=== PATIENT | female | born 1950 | race Two or more races ===

== ENCOUNTER → 2017-12-30 | Outpatient (CLI) | payer OTHER ==
[~2017-12-30] MED LIST: AMBIEN10 MG; CIPRO500 MG PO; CLONAZEPAM1 MG; INTESTINEX PO; LIPITOR20 MG PO; PROZAC20 MG; VIT D 50,000 PO; ZANTAC150 MG; ZANTAC150 MG PO; ZANTAC300 MG PO; ZESTRIL5 MG; ZESTRIL5 MG PO
== END | disposition home or self-care (01) ==
LOC: PPHC LAB 18:02
DX: Z01.89 Encounter for other specified special examinations (principal)

== ENCOUNTER → 2017-12-30 | Outpatient (CLI) | payer OTHER ==
[~2017-12-30] VITALS: Ht 152.4 cm; Wt 77.6 kg
== END | disposition home or self-care (01) ==
LOC: PPHC 17:47
DX: J02.8 Acute pharyngitis due to other specified organisms (principal); R05 Cough

== ENCOUNTER → 2018-01-24 | Emergency (ER) | payer OTHER ==
[~2018-01-24] VITALS: Ht 157.5 cm; Wt 78.0 kg
[~2018-01-24] MED LIST changes: +NEURONTIN300 MG PO; +PREMARIN0.45 MG; +VALACYCLOVIR1000 MG PO
== END | disposition home or self-care (01) ==
LOC: ER 21:06
DX: B02.8 Zoster with other complications (principal)

== ENCOUNTER → 2018-02-02 13:29 | Outpatient (CLI) | payer OTHER | END | disposition home or self-care (01) | LOC: LAB 13:29 | DX: R50.9 Fever, unspecified (principal) ==

== ENCOUNTER → 2018-02-02 | Outpatient (CLI) | payer OTHER | END | disposition home or self-care (01) | LOC: PPHC 12:10 | DX: B02.8 Zoster with other complications (principal) ==

== ENCOUNTER 2018-03-25 10:17 | Outpatient (CLI) | payer OTHER | END 2018-03-25 11:58 | disposition home or self-care (01) | LOC: RX STUDY 10:17 | DX: R13.10 Dysphagia, unspecified (principal) ==

== ENCOUNTER → 2018-06-22 | Outpatient (CLI) | payer OTHER | END | disposition home or self-care (01) | LOC: NUCLEAR 14:30 | DX: M81.8 Other osteoporosis without current pathological fracture (principal) ==

== ENCOUNTER 2019-03-29 16:44 | Outpatient (CLI) | payer OTHER | END 2019-03-29 16:55 | disposition home or self-care (01) | LOC: RAD 16:44 | DX: M25.562 Pain in left knee (principal) ==

== ENCOUNTER 2019-05-26 18:14 | Outpatient (CLI) | payer OTHER | END 2019-05-26 18:21 | disposition home or self-care (01) | LOC: LAB 18:14 | DX: J11.1 Influenza due to unidentified influenza virus with other respiratory manifestations (principal); J11.81 Influenza due to unidentified influenza virus with encephalopathy ==

== ENCOUNTER 2019-10-05 14:07 | Outpatient (CLI) | payer OTHER | END 2019-10-05 14:28 | disposition home or self-care (01) | LOC: MAMO-SONO 14:07 | DX: Z12.31 Encounter for screening mammogram for malignant neoplasm of breast (principal); Z87.898 Personal history of other specified conditions; N60.01 Solitary cyst of right breast ==

== ENCOUNTER 2019-10-19 17:10 | Outpatient (CLI) | payer OTHER | END 2019-10-19 17:15 | disposition home or self-care (01) | LOC: LAB 17:10 | DX: N39.0 Urinary tract infection, site not specified (principal) ==

== ENCOUNTER 2020-01-12 14:18 | Outpatient (CLI) | payer OTHER | END 2020-01-12 18:22 | disposition home or self-care (01) | LOC: RAD 14:18 | DX: M25.561 Pain in right knee (principal); M25.562 Pain in left knee ==

== ENCOUNTER 2020-04-02 16:49 | Emergency (ER) | payer OTHER ==
[~2020-04-02] VITALS: Ht 157.5 cm; Wt 77.6 kg
== END 2020-04-02 22:27 | disposition home or self-care (01) ==
LOC: ER 16:49
DX: K52.89 Other specified noninfective gastroenteritis and colitis (principal); K62.5 Hemorrhage of anus and rectum

== ENCOUNTER 2020-04-19 16:35 | Outpatient (CLI) | payer OTHER | END 2020-04-19 16:47 | disposition home or self-care (01) | LOC: LAB 16:35 | DX: R19.5 Other fecal abnormalities (principal) ==

== ENCOUNTER 2020-06-27 15:47 | Outpatient (CLI) | payer OTHER | END 2020-06-27 15:58 | disposition home or self-care (01) | LOC: RAD 15:47 | PROVIDERS: ATTEND General Practice | DX: R05 Cough (principal); J06.9 Acute upper respiratory infection, unspecified ==

== ENCOUNTER 2020-06-27 15:55 | Outpatient (CLI) | payer OTHER | END 2020-06-27 16:02 | disposition home or self-care (01) | LOC: LAB 15:55 | PROVIDERS: ATTEND General Practice | DX: J11.1 Influenza due to unidentified influenza virus with other respiratory manifestations (principal); R05 Cough; Z11.59 Encounter for screening for other viral diseases; Z20.828 Contact with and (suspected) exposure to other viral communicable diseases ==

== ENCOUNTER 2020-07-17 13:20 | Outpatient (CLI) | payer OTHER ==
[~2020-07-17] VITALS: Ht 157.5 cm; Wt 73.5 kg
[2020-07-17] MEDS ORDERED: ATACAND4 MG (16:02)
[2020-07-17] MEDS ORDERED: PROZAC20 MG (16:02)
== END 2020-07-17 15:53 | disposition home or self-care (01) ==
LOC: OFIC 805 13:20
PROVIDERS: ATTEND Otolaryngology Otology & Neurotology
DX: K21.0 Gastro-esophageal reflux disease with esophagitis (principal); J37.0 Chronic laryngitis; J04.0 Acute laryngitis; R49.0 Dysphonia

== ENCOUNTER 2020-08-14 11:08 | Outpatient (CLI) | payer OTHER ==
[~2020-08-14 11:08] MED LIST changes: +ATACAND4 MG
== END 2020-08-14 17:13 | disposition home or self-care (01) ==
LOC: OFIC 805 11:08
PROVIDERS: ATTEND Otolaryngology Otology & Neurotology
DX: J06.0 Acute laryngopharyngitis (principal); J37.0 Chronic laryngitis; K21.9 Gastro-esophageal reflux disease without esophagitis; R49.0 Dysphonia

== ENCOUNTER 2020-08-15 15:50 | Outpatient (CLI) | payer OTHER | END 2020-08-15 15:51 | disposition home or self-care (01) | LOC: PPH VACUNA 15:50 → LAB 15:50 | DX: Z23 Encounter for immunization (principal) ==

== ENCOUNTER → 2020-08-16 13:42 | Outpatient (CLI) | payer OTHER | END | disposition home or self-care (01) | LOC: LAB 13:42 | DX: Z20.828 Contact with and (suspected) exposure to other viral communicable diseases (principal) ==

== ENCOUNTER 2020-11-20 08:00 | Outpatient (CLI) | payer OTHER | END 2020-11-20 18:00 | disposition home or self-care (01) | LOC: PPH VACUNA 08:00 | DX: Z23 Encounter for immunization (principal) ==

== ENCOUNTER 2021-01-26 09:13 | Day surgery (SDC) | payer OTHER | END 2021-01-26 16:00 | disposition home or self-care (01) | LOC: AMB-ENDOS 09:13 | PROVIDERS: ATTEND Colon & Rectal Surgery | DX: K63.5 Polyp of colon (principal); K64.2 Third degree hemorrhoids; Z20.822 Contact with and (suspected) exposure to COVID-19 ==

== ENCOUNTER 2021-05-06 17:07 | Emergency (ER) | payer OTHER ==
[~2021-05-06] VITALS: Ht 157.5 cm; Wt 77.6 kg
== END 2021-05-06 20:05 | disposition home or self-care (01) ==
LOC: ER 17:07
DX: B34.9 Viral infection, unspecified (principal); F32.9 Major depressive disorder, single episode, unspecified

== ENCOUNTER 2021-06-05 12:33 | Emergency (ER) | payer OTHER ==
[~2021-06-05] VITALS: Ht 157.5 cm; Wt 73.5 kg
== END 2021-06-05 19:18 | disposition home or self-care (01) ==
LOC: ER 12:33
DX: J45.998 Other asthma (principal); J11.1 Influenza due to unidentified influenza virus with other respiratory manifestations; Z11.52 Encounter for screening for COVID-19

== ENCOUNTER → 2021-09-01 08:22 | Outpatient (CLI) | payer OTHER | END | disposition home or self-care (01) | LOC: LAB 08:22 | PROVIDERS: ATTEND Internal Medicine Gastroenterology | DX: R19.5 Other fecal abnormalities (principal); R10.13 Epigastric pain; R07.89 Other chest pain ==

== ENCOUNTER 2021-09-11 14:24 | Outpatient (CLI) | payer OTHER | END 2021-09-11 14:32 | disposition home or self-care (01) | LOC: MRI 14:24 | PROVIDERS: ATTEND Internal Medicine Cardiovascular Disease | DX: M54.12 Radiculopathy, cervical region (principal) | CPT/HCPCS: 72141 ==

== ENCOUNTER 2021-09-19 09:30 | Outpatient (CLI) | payer OTHER | END 2021-09-19 09:32 | disposition home or self-care (01) | LOC: PPH VACUNA 09:30 | PROVIDERS: ATTEND Emergency Medicine Pediatric Emergency Medicine | DX: Z23 Encounter for immunization (principal) ==

== ENCOUNTER 2021-10-10 09:00 | Outpatient (CLI) | payer OTHER | END 2021-10-10 09:30 | disposition home or self-care (01) | LOC: PPH VACUNA 09:00 | PROVIDERS: ATTEND Emergency Medicine Pediatric Emergency Medicine | DX: Z23 Encounter for immunization (principal) ==

== ENCOUNTER 2021-12-24 14:57 | Outpatient (CLI) | payer OTHER | END 2021-12-24 15:03 | disposition home or self-care (01) | LOC: LAB 14:57 | PROVIDERS: ATTEND Internal Medicine | DX: Z20.828 Contact with and (suspected) exposure to other viral communicable diseases (principal) ==

== ENCOUNTER 2022-02-02 07:58 | Outpatient (CLI) | payer OTHER | END 2022-02-02 08:00 | disposition home or self-care (01) | LOC: LAB 07:58 | PROVIDERS: ATTEND Internal Medicine | DX: K29.30 Chronic superficial gastritis without bleeding (principal); F41.8 Other specified anxiety disorders; M65.332 Trigger finger, left middle finger; I10 Essential (primary) hypertension; K64.8 Other hemorrhoids; Z13.1 Encounter for screening for diabetes mellitus; Z13.220 Encounter for screening for lipoid disorders; E55.9 Vitamin D deficiency, unspecified; Z20.822 Contact with and (suspected) exposure to COVID-19 ==

== ENCOUNTER 2022-03-18 14:06 | Outpatient (CLI) | payer OTHER | END 2022-03-18 14:12 | disposition home or self-care (01) | LOC: LAB 14:06 | PROVIDERS: ATTEND Internal Medicine | DX: U07.1 COVID-19 (principal); B34.9 Viral infection, unspecified ==

== ENCOUNTER → 2022-03-19 | Outpatient (CLI) | payer OTHER | END | disposition home or self-care (01) | LOC: NUCLEAR 03-18 07:00 | PROVIDERS: ATTEND Internal Medicine | DX: R07.9 Chest pain, unspecified (principal); I10 Essential (primary) hypertension | CPT/HCPCS: 78452; 93017; A9500 ==

== ENCOUNTER 2022-06-03 11:19 | Outpatient (CLI) | payer OTHER | END 2022-06-03 11:24 | disposition home or self-care (01) | LOC: NUCLEAR 11:19 | PROVIDERS: ATTEND Internal Medicine | DX: R07.9 Chest pain, unspecified (principal); I73.9 Peripheral vascular disease, unspecified ==

== ENCOUNTER 2022-07-15 13:09 | Emergency (ER) | payer OTHER | END 2022-07-15 20:13 | disposition home or self-care (01) | LOC: ER 13:09 | DX: K62.5 Hemorrhage of anus and rectum (principal); K57.92 Diverticulitis of intestine, part unspecified, without perforation or abscess without bleeding ==

== ENCOUNTER 2022-08-07 14:30 | Outpatient (CLI) | payer OTHER | END 2022-08-07 14:35 | disposition home or self-care (01) | LOC: PPH VACUNA 14:30 | PROVIDERS: ATTEND Emergency Medicine Pediatric Emergency Medicine | DX: Z23 Encounter for immunization (principal) | CPT/HCPCS: 90686; G0008 ==

== ENCOUNTER → 2022-12-25 09:14 | Outpatient (CLI) | payer OTHER | END | disposition home or self-care (01) | LOC: LAB 09:14 | PROVIDERS: ATTEND Internal Medicine | DX: E78.9 Disorder of lipoprotein metabolism, unspecified (principal); E55.9 Vitamin D deficiency, unspecified; R73.9 Hyperglycemia, unspecified; K29.30 Chronic superficial gastritis without bleeding; F41.8 Other specified anxiety disorders; M65.332 Trigger finger, left middle finger; I10 Essential (primary) hypertension; K64.8 Other hemorrhoids ==

== ENCOUNTER 2023-01-14 12:56 | Outpatient (CLI) | payer OTHER | END 2023-01-14 13:06 | disposition home or self-care (01) | LOC: MAMO-SONO 12:56 | PROVIDERS: ATTEND Internal Medicine | DX: Z12.39 Encounter for other screening for malignant neoplasm of breast (principal) ==

== ENCOUNTER 2023-01-27 13:50 | Outpatient (CLI) | payer OTHER | END 2023-01-27 15:37 | disposition home or self-care (01) | LOC: LAB 13:50 | DX: U07.1 COVID-19 (principal) ==

== ENCOUNTER 2023-03-08 10:14 | Outpatient (CLI) | payer OTHER | END 2023-03-08 10:24 | disposition home or self-care (01) | LOC: LAB 10:14 | PROVIDERS: ATTEND Internal Medicine | DX: E78.9 Disorder of lipoprotein metabolism, unspecified (principal); E55.9 Vitamin D deficiency, unspecified; R73.9 Hyperglycemia, unspecified; K29.30 Chronic superficial gastritis without bleeding; F41.8 Other specified anxiety disorders; M65.332 Trigger finger, left middle finger; I10 Essential (primary) hypertension; K64.8 Other hemorrhoids ==

== ENCOUNTER 2023-07-12 08:29 | Outpatient (CLI) | payer OTHER ==
[~2023-07-12 08:29] MED LIST changes: +TESSALON PERLE100 MG PO; +ZITHROMAX500 MG PO; +ZYRTEC10 MG PO
== END 2023-07-12 08:35 | disposition home or self-care (01) ==
LOC: LAB 08:29
PROVIDERS: ATTEND Internal Medicine
DX: E78.9 Disorder of lipoprotein metabolism, unspecified (principal); E55.9 Vitamin D deficiency, unspecified; R73.9 Hyperglycemia, unspecified; K29.30 Chronic superficial gastritis without bleeding; F41.8 Other specified anxiety disorders; M65.332 Trigger finger, left middle finger; I10 Essential (primary) hypertension; K64.8 Other hemorrhoids

== ENCOUNTER 2023-08-29 11:23 | Outpatient (CLI) | payer OTHER | END 2023-08-29 11:33 | disposition home or self-care (01) | LOC: PPH VACUNA 11:23 | PROVIDERS: ATTEND Emergency Medicine Pediatric Emergency Medicine | DX: Z23 Encounter for immunization (principal) ==

== ENCOUNTER 2023-09-29 12:39 | Outpatient (CLI) | payer OTHER | END 2023-09-29 15:15 | disposition home or self-care (01) | LOC: EKG 12:39 | PROVIDERS: ATTEND Ophthalmology | DX: I11.9 Hypertensive heart disease without heart failure (principal); Z98.41 Cataract extraction status, right eye ==

== ENCOUNTER 2023-09-30 11:25 | Outpatient (CLI) | payer OTHER ==
[2023-09-30 12:07] LABS: HEMATOCRIT 46.7 % (36.0-45.00); HEMOGLOBIN 15.3 g/dL (12.0-15.00); MEAN CELL VOLUME 91.2 fL (80.00-100.00); MEAN CORPUSCULAR HEMOGLOBIN 29.9 pg (27.00-32.0); MEAN CORPUSCULAR HGB CONC 32.8 g/dl (32.0-36.0); PLATELET COUNT 283 K/uL (150-450); RED BLOOD COUNT 5.13 M/uL (4.00-6.00); RED CELL DISTRIBUTION WIDTH 13.5 % (11.5-14.5)
[2023-09-30 12:34] LABS: INR 1.01; PARTIAL THROMBOPLASTIN TIME 27.8 SECONDS (22.0-34.0); PROTHROMBIN TIME 10.6 SECONDS (9.0-11.5)
[2023-09-30 12:39] LABS: ALBUMIN 3.8 gm/dL (3.4-5.0); BILIRUBIN TOTAL 0.42 mg/dL (0.3-1.2); CALCIUM 9.6 mg/dL (8.5-10.1); CREATININE SERUM 1.11 mg/dL (0.55-1.02); GFR 48.05; GLOBULINA 3.6 G/DL (2.4-3.5); POTASSIUM 4.34 mEq/L (3.5-5.1); TOTAL PROTEIN 7.4 gm/dL (6.4-8.2)
== END 2023-09-30 11:26 | disposition home or self-care (01) ==
LOC: LAB 11:25
PROVIDERS: ATTEND Ophthalmology
DX: H25.013 Cortical age-related cataract, bilateral (principal)

== ENCOUNTER 2023-11-22 08:14 | Outpatient (CLI) | payer OTHER ==
[2023-11-22 09:37] LABS: HEMATOCRIT 44.7 % (36.0-45.00); MEAN CELL VOLUME 89.1 fL (80.00-100.00); MEAN CORPUSCULAR HGB CONC 33.7 g/dl (32.0-36.0); PLATELET COUNT 301 K/uL (150-450); RED BLOOD COUNT 5.01 M/uL (4.00-6.00)
[2023-11-22 09:45] LABS: PH,URINE 6.5 (5.0-8.0); URINE APPEARANCE Clear; URINE BILIRRUBIN Negative (NEGATIVE); URINE BLOOD Negative; URINE COLOR Yellow; URINE GLUCOSE Negative (NEGATIVE); URINE LEUKOCYTE Negative; URINE NITRATE Negative; URINE PROTEIN Negative (NEGATIVE); URINE UROBILINOGEN 0.2 E.U./dl
[2023-11-22 09:50] LABS: URINE EPITHELIAL CELLS 7.8 uL (0.0-38.8); URINE RBC 48.4 uL (0.0-20.8); URINE WBC 8.4 uL (0.0-23.2)
[2023-11-22 10:19] LABS: ALBUMIN 3.7 gm/dL (3.4-5.0); BILIRUBIN TOTAL 0.36 mg/dL (0.3-1.2); CALCIUM 8.8 mg/dL (8.5-10.1); CHOL HDL RATIO 5.5 (0-5.0); CREATININE SERUM 1.18 mg/dL (0.55-1.02); FREE TRIODOTIRONINE 3.18 pg/ml (2.18-3.98); GFR 44.77; GLOBULINA 3.4 G/DL (2.4-3.5); POTASSIUM 4.05 mEq/L (3.5-5.1); T4 TOTAL 10.03 UG/DL (4.8-13.9); TOTAL PROTEIN 7.1 gm/dL (6.4-8.2); TSH 2.47 uIU/mL (0.358-3.74)
== END 2023-11-22 08:16 | disposition home or self-care (01) ==
LOC: LAB 08:14
PROVIDERS: ATTEND Internal Medicine
DX: E78.9 Disorder of lipoprotein metabolism, unspecified (principal); E55.9 Vitamin D deficiency, unspecified; K29.30 Chronic superficial gastritis without bleeding; F41.8 Other specified anxiety disorders; M65.332 Trigger finger, left middle finger; I10 Essential (primary) hypertension; K64.8 Other hemorrhoids; R73.9 Hyperglycemia, unspecified

== ENCOUNTER 2023-12-22 12:51 | Outpatient (CLI) | payer OTHER ==
[2023-12-22 13:54] LABS: HEMATOCRIT 46.4 % (36.0-45.00); HEMOGLOBIN 15.6 g/dL (12.0-15.00); MEAN CELL VOLUME 90.6 fL (80.00-100.00); MEAN CORPUSCULAR HEMOGLOBIN 30.4 pg (27.00-32.0); MEAN CORPUSCULAR HGB CONC 33.5 g/dl (32.0-36.0); PLATELET COUNT 267 K/uL (150-450); RED BLOOD COUNT 5.12 M/uL (4.00-6.00); RED CELL DISTRIBUTION WIDTH 13.7 % (11.5-14.5)
[2023-12-22 14:28] LABS: MYCOPLASMA PNEUMONIAE IGM NON REACTIVE (NO REACTIVE)
== END 2023-12-22 23:00 | disposition home or self-care (01) ==
LOC: LAB 12:51
PROVIDERS: ATTEND Internal Medicine
DX: J11.1 Influenza due to unidentified influenza virus with other respiratory manifestations (principal); R50.9 Fever, unspecified; U07.1 COVID-19

== ENCOUNTER 2024-01-24 13:43 | Emergency (ER) | payer OTHER ==
[~2024-01-24] VITALS: Ht 154.9 cm; Wt 78.0 kg
[2024-01-24] MEDS ORDERED: GENTAMICIN SULFA5 ML OP (14:01)
== END 2024-01-24 15:06 | disposition home or self-care (01) ==
LOC: ER 13:44
DX: H10.89 Other conjunctivitis (principal)

== ENCOUNTER 2024-07-10 08:06 | Outpatient (CLI) | payer OTHER ==
[~2024-07-10 08:06] MED LIST changes: +GENTAMICIN SULFA5 ML OP
[2024-07-10 09:36] LABS: HEMOGLOBIN 14.9 g/dL (12.0-15.00); MEAN CELL VOLUME 89.7 fL (80.00-100.00); MEAN CORPUSCULAR HEMOGLOBIN 30.4 pg (27.00-32.0); MEAN CORPUSCULAR HGB CONC 33.9 g/dl (32.0-36.0); PLATELET COUNT 289 K/uL (150-450); RED BLOOD COUNT 4.91 M/uL (4.00-6.00); RED CELL DISTRIBUTION WIDTH 13.9 % (11.5-14.5)
[2024-07-10 10:00] LABS: PH,URINE 5.5 (5.0-8.0); URINE APPEARANCE Cloudy; URINE BILIRRUBIN Negative (NEGATIVE); URINE BLOOD Negative; URINE COLOR Dark Yellow; URINE GLUCOSE Negative (NEGATIVE); URINE KETONE Trace (NEGATIVE); URINE LEUKOCYTE Small; URINE NITRATE Negative; URINE PROTEIN Trace (NEGATIVE)
[2024-07-10 10:06] LABS: URINE BACTERIA 1383.3 uL (0.0-1933); URINE EPITHELIAL CELLS 77.1 uL (0.0-38.8); URINE WBC 163.8 uL (0.0-23.2)
[2024-07-10 10:32] LABS: URINE CAST 0.45 uL (0.0-1.40)
[2024-07-10 10:44] LABS: ALBUMIN 3.9 gm/dL (3.4-5.0); BILIRUBIN TOTAL 0.41 mg/dL (0.3-1.2); CALCIUM 9.5 mg/dL (8.5-10.1); CHOL HDL RATIO 3.4 (0-5.0); CREATININE SERUM 1.14 mg/dL (0.55-1.02); FREE TRIODOTIRONINE 3.47 pg/ml (2.18-3.98); GFR 46.46; GLOBULINA 3.3 G/DL (2.4-3.5); POTASSIUM 4.34 mEq/L (3.5-5.1); T4 TOTAL 11.89 UG/DL (4.8-13.9); TOTAL PROTEIN 7.2 gm/dL (6.4-8.2); TSH 2.07 uIU/mL (0.358-3.74)
[2024-07-10 10:48] LABS: C-REACTIVE PROTEIN 0.69 MG/DL (0.00-0.29)
== END 2024-07-10 08:41 | disposition home or self-care (01) ==
LOC: LAB 08:06
PROVIDERS: ATTEND Internal Medicine
DX: F41.8 Other specified anxiety disorders (principal); K29.30 Chronic superficial gastritis without bleeding; I10 Essential (primary) hypertension; E11.9 Type 2 diabetes mellitus without complications; E78.9 Disorder of lipoprotein metabolism, unspecified; E03.9 Hypothyroidism, unspecified; E55.9 Vitamin D deficiency, unspecified; M65.332 Trigger finger, left middle finger; K64.8 Other hemorrhoids; R73.9 Hyperglycemia, unspecified

== ENCOUNTER 2024-10-05 14:30 | Outpatient (CLI) | payer OTHER | END 2024-10-05 14:40 | disposition home or self-care (01) | LOC: PPH VACUNA 14:30 | PROVIDERS: ATTEND Emergency Medicine Pediatric Emergency Medicine | DX: Z23 Encounter for immunization (principal) ==

== ENCOUNTER 2024-11-06 08:25 | Outpatient (CLI) | payer OTHER ==
[2024-11-06 09:36] LABS: HEMOGLOBIN 15.5 g/dL (12.0-15.00); MEAN CELL VOLUME 91.8 fL (80.00-100.00); MEAN CORPUSCULAR HEMOGLOBIN 30.3 pg (27.00-32.0); PLATELET COUNT 329 K/uL (150-450); RED BLOOD COUNT 5.12 M/uL (4.00-6.00); RED CELL DISTRIBUTION WIDTH 13.9 % (11.5-14.5)
[2024-11-06 09:49] LABS: ERYTHROCYTE SEDIMENTATION RATE 7 mm/hr
[2024-11-06 10:51] LABS: ALBUMIN 4.1 gm/dL (3.4-5.0); BILIRUBIN TOTAL 0.44 mg/dL (0.3-1.2); CALCIUM 9.6 mg/dL (8.5-10.1); CHOL HDL RATIO 3.1 (0-5.0); CREATININE SERUM 1.35 mg/dL (0.55-1.02); FREE TRIODOTIRONINE 2.97 pg/ml (2.18-3.98); GFR 38.23; GLOBULINA 3.5 G/DL (2.4-3.5); POTASSIUM 4.4 mEq/L (3.5-5.1); T4 TOTAL 11.26 UG/DL (4.8-13.9); TOTAL PROTEIN 7.6 gm/dL (6.4-8.2); TSH 2.61 uIU/mL (0.358-3.74)
[2024-11-06 10:58] LABS: C-REACTIVE PROTEIN 0.69 MG/DL (0.00-0.29)
[2024-11-06 13:16] LABS: PH,URINE 5.5 (5.0-8.0); URINE APPEARANCE Cloudy; URINE BILIRRUBIN Negative (NEGATIVE); URINE BLOOD Negative; URINE COLOR Yellow; URINE GLUCOSE Negative (NEGATIVE); URINE KETONE Trace (NEGATIVE); URINE LEUKOCYTE Large; URINE NITRATE Negative; URINE PROTEIN Trace (NEGATIVE)
[2024-11-06 13:17] LABS: URINE EPITHELIAL CELLS 130.6 uL (0.0-38.8); URINE RBC 9.5 uL (0.0-20.8); URINE WBC 1695.3 uL (0.0-23.2)
[2024-11-06 13:40] LABS: URINE BACTERIA > 9821.5 uL (0.0-1933)
== END 2024-11-06 08:30 | disposition home or self-care (01) ==
LOC: LAB 08:25
PROVIDERS: ATTEND Internal Medicine
DX: E03.9 Hypothyroidism, unspecified (principal); I10 Essential (primary) hypertension; E78.9 Disorder of lipoprotein metabolism, unspecified; E11.9 Type 2 diabetes mellitus without complications; K64.8 Other hemorrhoids; F41.8 Other specified anxiety disorders

== ENCOUNTER 2025-01-08 09:21 | Outpatient (CLI) | payer OTHER ==
[2025-01-08 10:27] LABS: HEMATOCRIT 44.9 % (36.0-45.00); HEMOGLOBIN 15.5 g/dL (12.0-15.00); MEAN CELL VOLUME 89.9 fL (80.00-100.00); MEAN CORPUSCULAR HEMOGLOBIN 31.1 pg (27.00-32.0); MEAN CORPUSCULAR HGB CONC 34.6 g/dl (32.0-36.0); PLATELET COUNT 289 K/uL (150-450); RED CELL DISTRIBUTION WIDTH 13.9 % (11.5-14.5)
[2025-01-08 10:34] LABS: ERYTHROCYTE SEDIMENTATION RATE 19 mm/hr
[2025-01-08 11:00] LABS: ALBUMIN 3.7 gm/dL (3.4-5.0); BILIRUBIN TOTAL 0.5 mg/dL (0.3-1.2); CALCIUM 9.5 mg/dL (8.5-10.1); CHOL HDL RATIO 3.2 (0-5.0); CREATININE SERUM 0.98 mg/dL (0.55-1.02); GFR 55.18; GLOBULINA 3.6 G/DL (2.4-3.5); POTASSIUM 4.2 mEq/L (3.5-5.1); T4 TOTAL 11.59 UG/DL (4.8-13.9); TOTAL PROTEIN 7.3 gm/dL (6.4-8.2); TSH 1.55 uIU/mL (0.358-3.74)
[2025-01-08 11:02] LABS: C-REACTIVE PROTEIN 0.56 MG/DL (0.00-0.29)
[2025-01-08 14:03] LABS: PH,URINE 5.5 (5.0-8.0); URINE APPEARANCE Clear; URINE BILIRRUBIN Negative (NEGATIVE); URINE BLOOD Negative; URINE COLOR Yellow; URINE GLUCOSE Negative (NEGATIVE); URINE KETONE Negative (NEGATIVE); URINE LEUKOCYTE Moderate; URINE NITRATE Negative; URINE PROTEIN Negative (NEGATIVE); URINE UROBILINOGEN 0.2 E.U./dl
[2025-01-08 14:04] LABS: URINE BACTERIA 210.5 uL (0.0-1933); URINE EPITHELIAL CELLS 5.8 uL (0.0-38.8); URINE WBC 56.3 uL (0.0-23.2)
[2025-01-08 14:05] LABS: URINE RBC 1.6 uL (0.0-20.8)
== END 2025-01-08 23:00 | disposition home or self-care (01) ==
LOC: LAB 09:21
PROVIDERS: ATTEND Internal Medicine
DX: E03.9 Hypothyroidism, unspecified (principal); I10 Essential (primary) hypertension; E78.9 Disorder of lipoprotein metabolism, unspecified; E11.9 Type 2 diabetes mellitus without complications; K64.8 Other hemorrhoids; F41.8 Other specified anxiety disorders

== ENCOUNTER 2025-05-21 08:30 | Outpatient (CLI) | payer OTHER ==
[2025-05-21 09:46] LABS: BASO % 0.5 % (0.1-1.2); EOS # 0.13 (0.04-0.54); EOS % 1.7 % (0.7-7.0); HEMATOCRIT 45.6 % (34.1-44.9); HEMOGLOBIN 15.1 g/dL (11.2-15.7); LYMPH # 2.64 (1.18-3.74); LYMPH % 33.8 % (19.3-53.1); MEAN CORPUSCULAR HEMOGLOBIN 30.1 pg (25.6-32.2); MONO # 0.57 (0.24-0.82); MONO % 7.3 % (4.7-12.5); NEUT # 4.38 (1.56-6.13); NEUT % 56.1 % (34.0-71.1); PLATELET COUNT 295 K/uL (163-369); RED BLOOD COUNT 5.02 M/uL (3.93-5.22); RED CELL DISTRIBUTION WIDTH 13.4 % (11.6-14.4)
[2025-05-21 10:36] LABS: ALBUMIN 3.9 gm/dL (3.4-5.0); BILIRUBIN TOTAL 0.44 mg/dL (0.3-1.2); CALCIUM 9.3 mg/dL (8.5-10.1); CHOL HDL RATIO 3.2 (0-5.0); CREATININE SERUM 1.09 mg/dL (0.55-1.02); FREE TRIODOTIRONINE 2.87 pg/ml (2.18-3.98); GFR 48.8; GLOBULINA 3.4 G/DL (2.4-3.5); POTASSIUM 4.39 mEq/L (3.5-5.1); T4 TOTAL 10.79 UG/DL (4.8-13.9); TOTAL PROTEIN 7.3 gm/dL (6.4-8.2); TSH 1.64 uIU/mL (0.358-3.74)
[2025-05-21 10:40] LABS: C-REACTIVE PROTEIN 0.48 MG/DL (0.00-0.29)
[2025-05-21 12:25] LABS: PH,URINE 5.5 (5.0-8.0); URINE APPEARANCE Clear; URINE BILIRRUBIN Negative (NEGATIVE); URINE BLOOD Negative; URINE COLOR Yellow; URINE GLUCOSE Negative (NEGATIVE); URINE KETONE Negative (NEGATIVE); URINE LEUKOCYTE Moderate; URINE NITRATE Negative; URINE PROTEIN Negative (NEGATIVE)
[2025-05-21 12:28] LABS: URINE BACTERIA 447.8 uL (0.0-1933); URINE CAST 0.29 uL (0.0-1.40); URINE EPITHELIAL CELLS 37.8 uL (0.0-38.8); URINE RBC 4.1 uL (0.0-20.8)
== END 2025-05-21 09:23 | disposition home or self-care (01) ==
LOC: LAB 08:30
PROVIDERS: ATTEND Internal Medicine
DX: F41.8 Other specified anxiety disorders (principal); K64.8 Other hemorrhoids; I10 Essential (primary) hypertension; E11.9 Type 2 diabetes mellitus without complications; E78.9 Disorder of lipoprotein metabolism, unspecified; E03.9 Hypothyroidism, unspecified

== ENCOUNTER 2025-06-28 13:41 | Outpatient (CLI) | payer OTHER | END 2025-06-28 13:47 | disposition home or self-care (01) | LOC: EKG 13:41 | PROVIDERS: ATTEND Ophthalmology | DX: I10 Essential (primary) hypertension (principal) ==

== ENCOUNTER 2025-07-02 08:23 | Outpatient (CLI) | payer OTHER ==
[2025-07-02 10:12] LABS: BASO % 0.9 % (0.1-1.2); EOS # 0.14 (0.04-0.54); EOS % 1.8 % (0.7-7.0); LYMPH # 2.72 (1.18-3.74); LYMPH % 35.4 % (19.3-53.1); MEAN PLATELET VOLUME 10.80 fl (9.4-12.4); MONO # 0.44 (0.24-0.82); MONO % 5.7 % (4.7-12.5); NEUT # 4.27 (1.56-6.13); NEUT % 55.7 % (34.0-71.1); RED CELL DISTRIBUTION WIDTH 13.2 % (11.6-14.4)
[2025-07-02 10:30] LABS: INR 1.02
[2025-07-02 10:37] LABS: ALT/SGPT 31.0 U/L (12-78); AST/SGOT 15.0 U/L (15-37); BILIRUBIN TOTAL 0.38 mg/dL (0.3-1.2); BUN CREA RATIO 20.0 (7.0-25.0); CREATININE SERUM 1.14 mg/dL (0.55-1.02); GFR 46.34; GLOBULINA 3.5 G/DL (2.4-3.5); GLUCOSE FASTING 118.0 mg/dL (65-100); OSMOLALITY SERUM 280.0 MOSM/KG (275-295)
== END 2025-07-02 08:25 | disposition home or self-care (01) ==
LOC: LAB 08:23
PROVIDERS: ATTEND Ophthalmology
DX: D68.8 Other specified coagulation defects (principal); H25.012 Cortical age-related cataract, left eye

== ENCOUNTER 2025-07-02 09:20 | Outpatient (CLI) | payer OTHER | END 2025-07-02 09:28 | disposition home or self-care (01) | LOC: RAD 09:20 | PROVIDERS: ATTEND Ophthalmology | DX: Z01.811 Encounter for preprocedural respiratory examination (principal) ==

== ENCOUNTER 2025-07-09 08:17 | Outpatient (CLI) | payer OTHER ==
[2025-07-09 10:33] LABS: BASO % 0.7 % (0.1-1.2); EOS # 0.08 (0.04-0.54); EOS % 1.0 % (0.7-7.0); LYMPH # 2.50 (1.18-3.74); LYMPH % 30.4 % (19.3-53.1); MEAN PLATELET VOLUME 10.40 fl (9.4-12.4); MONO # 0.56 (0.24-0.82); MONO % 6.8 % (4.7-12.5); NEUT # 4.99 (1.56-6.13); NEUT % 60.7 % (34.0-71.1); RED CELL DISTRIBUTION WIDTH 13.0 % (11.6-14.4)
[2025-07-09 11:08] LABS: ALT/SGPT 24.0 U/L (12-78); AST/SGOT 14.0 U/L (15-37); BILIRUBIN TOTAL 0.44 mg/dL (0.3-1.2); BUN CREA RATIO 15.0 (7.0-25.0); CHOL HDL RATIO 3.0 (0-5.0); CREATININE SERUM 1.2 mg/dL (0.55-1.02); FREE TRIODOTIRONINE 2.96 pg/ml (2.18-3.98); GFR 43.68; GLOBULINA 3.4 G/DL (2.4-3.5); GLUCOSE FASTING 110.0 mg/dL (65-100); HDL 50.0 mg/dl (40-60); LDL 74.0 mg/dl (0-130); OSMOLALITY SERUM 280.0 MOSM/KG (275-295); T4 TOTAL 10.64 UG/DL (4.8-13.9); TSH 2.11 uIU/mL (0.358-3.74); VLDL 26.0 (0-39)
[2025-07-09 11:32] LABS: URINE APPEARANCE Clear; URINE BILIRRUBIN Negative (NEGATIVE); URINE BLOOD Negative; URINE COLOR Yellow; URINE GLUCOSE Negative (NEGATIVE); URINE KETONE Trace (NEGATIVE); URINE LEUKOCYTE Moderate; URINE NITRATE Negative; URINE PROTEIN Negative (NEGATIVE); URINE UROBILINOGEN 0.2 E.U./dl
[2025-07-09 11:35] LABS: URINE BACTERIA 229.1 uL (0.0-1933); URINE CAST 2.49 uL (0.0-1.40); URINE EPITHELIAL CELLS 40.7 uL (0.0-38.8); URINE RBC 11.5 uL (0.0-20.8); URINE WBC 29.8 uL (0.0-23.2)
== END 2025-07-09 08:18 | disposition home or self-care (01) ==
LOC: LAB 08:17
PROVIDERS: ATTEND Internal Medicine
DX: E03.9 Hypothyroidism, unspecified (principal); I10 Essential (primary) hypertension; E78.9 Disorder of lipoprotein metabolism, unspecified; E11.9 Type 2 diabetes mellitus without complications; F41.8 Other specified anxiety disorders

== ENCOUNTER 2025-09-10 09:18 | Outpatient (CLI) | payer OTHER ==
[2025-09-10 11:12] LABS: BASO % 0.8 % (0.1-1.2); EOS # 0.10 (0.04-0.54); EOS % 1.3 % (0.7-7.0); LYMPH # 2.74 (1.18-3.74); LYMPH % 35.9 % (19.3-53.1); MEAN PLATELET VOLUME 10.80 fl (9.4-12.4); MONO # 0.47 (0.24-0.82); MONO % 6.2 % (4.7-12.5); NEUT # 4.24 (1.56-6.13); NEUT % 55.5 % (34.0-71.1); RED CELL DISTRIBUTION WIDTH 12.6 % (11.6-14.4)
[2025-09-10 11:50] LABS: ALT/SGPT 28.0 U/L (12-78); AST/SGOT 16.0 U/L (15-37); BILIRUBIN TOTAL 0.55 mg/dL (0.3-1.2); BUN CREA RATIO 17.0 (7.0-25.0); CHOL HDL RATIO 3.5 (0-5.0); CREATININE SERUM 1.11 mg/dL (0.55-1.02); FREE TRIODOTIRONINE 2.87 pg/ml (2.18-3.98); GFR 47.79; GLOBULINA 3.3 G/DL (2.4-3.5); GLUCOSE FASTING 112.0 mg/dL (65-100); HDL 47.0 mg/dl (40-60); LDL 92.0 mg/dl (0-130); OSMOLALITY SERUM 281.0 MOSM/KG (275-295); T4 TOTAL 11.26 UG/DL (4.8-13.9); TSH 1.38 uIU/mL (0.358-3.74); VLDL 26.0 (0-39)
[2025-09-10 12:54] LABS: URINE APPEARANCE Clear; URINE BILIRRUBIN Negative (NEGATIVE); URINE BLOOD Negative; URINE COLOR Dark Yellow; URINE GLUCOSE Negative (NEGATIVE); URINE KETONE Trace (NEGATIVE); URINE LEUKOCYTE Small; URINE NITRATE Negative; URINE PROTEIN Negative (NEGATIVE); URINE UROBILINOGEN 1.0 E.U./dl
[2025-09-10 12:58] LABS: URINE BACTERIA 393.5 uL (0.0-1933); URINE EPITHELIAL CELLS 34.6 uL (0.0-38.8); URINE RBC 4.8 uL (0.0-20.8); URINE WBC 53.8 uL (0.0-23.2)
[2025-09-10 12:59] LABS: URINE CAST 1.17 uL (0.0-1.40)
== END 2025-09-10 10:38 | disposition home or self-care (01) ==
LOC: LAB 09:18
PROVIDERS: ATTEND Internal Medicine
DX: E03.9 Hypothyroidism, unspecified (principal); I10 Essential (primary) hypertension; E11.9 Type 2 diabetes mellitus without complications; E78.9 Disorder of lipoprotein metabolism, unspecified; K64.8 Other hemorrhoids; F41.8 Other specified anxiety disorders